=== PATIENT | female | born 1965 | race Two or more races ===

== ENCOUNTER 2025-01-30 07:11 | Emergency (ER) | payer OTHER ==
[~2025-01-30] VITALS: Ht 160 cm; Wt 74.8 kg
[2025-01-30] MEDS ORDERED: OMEPRAZOLE MAGN20 MG PO (07:41)
[2025-01-30] MEDS ORDERED: ONDANSETRON HCL 2 MG/ML VIAL IV STA (08:22)
[2025-01-30] MEDS ORDERED: 0.9 % SODIUM CHLORIDE 1,000 ML IV STA (08:22)
[2025-01-30] MEDS ORDERED: ONDANSETRON HCL 2 MG/ML VIAL ONE (08:25)
[2025-01-30 09:33] LABS: BASO % 0.4 % (0.1-1.2); EOS # 0.01 (0.04-0.54); EOS % 0.2 % (0.7-7.0); HEMATOCRIT 36.1 % (34.1-44.9); HEMOGLOBIN 11.5 g/dL (11.2-15.7); LYMPH # 0.86 (1.18-3.74); MEAN CORPUSCULAR HEMOGLOBIN 24.3 pg (25.6-32.2); MONO # 0.35 (0.24-0.82); MONO % 6.5 % (4.7-12.5); NEUT # 4.13 (1.56-6.13); NEUT % 76.7 % (34.0-71.1); PLATELET COUNT 299 K/uL (163-369); RED BLOOD COUNT 4.73 M/uL (3.93-5.22); RED CELL DISTRIBUTION WIDTH 16.6 % (11.6-14.4)
[2025-01-30 09:58] LABS: CALCIUM 9.2 mg/dL (8.5-10.1); CREATININE SERUM 0.81 mg/dL (0.55-1.02); GFR 72.12; POTASSIUM 4.03 mEq/L (3.5-5.1)
[2025-01-30] MEDS ORDERED: KETOROLAC TROMETHAMINE 30 MG VIAL ONE (11:02)
[2025-01-30] MEDS ORDERED: FAMOTIDINE/PF 20 MG/2 ML VIAL ONE (11:02)
[2025-01-30] MEDS ORDERED: FAMOTIDINE/PF 20 MG in 0.9 % SODIUM CHLORIDE 8 ML IV PUSH STA (11:03)
[2025-01-30] MEDS ORDERED: KETOROLAC TROMETHAMINE 30 MG VIAL IV ONE (11:15)
[2025-01-30] MEDS ORDERED: LOPERAMIDE HCL 2 MG CAPSULE PO ONE ×2 (11:30→11:42)
== END 2025-01-30 12:06 | disposition left against medical advice (07) ==
LOC: ER 07:11
PROVIDERS: Emergency Medicine
DX: R11.10 Vomiting, unspecified (principal); Z88.0 Allergy status to penicillin; Z88.8 Allergy status to other drugs, medicaments and biological substances